=== PATIENT | male | born 1940 | race Caucasian/White ===

== ENCOUNTER 2017-09-16 11:44 | Emergency (ER) | payer MEDICARE, SELFPAY ==
[2017-09-16 12:02] VITALS: BP 136/73; PULSE 92; RESP 18; TEMP 36.7; O2SAT 98
--- NOTE | 2017-09-16 12:03 | ED_ITS ---
HPI - Extremity Injury (Upper) <ESTHER Alanis - Last Filed: 09/16/17 21:28> General Chief Complaint: Extremity Injury, Upper Stated Complaint: LEFT HAND LACERATION FROM A TABLE SAW Time Seen by Provider: 09/16/17 12:13 History of Present Illness HPI narrative: 77-year-old male here for complaint of a laceration to his left thumb. Patient was using a table saw and piece of wood kicked back and hit him in his left thumb. He denies any other injuries or concerns. He reports that incident happened at 11:30 a.m. today. He does not know when his last tetanus was. He reports full range of motion to the left thumb and good sensation. Bleeding is controlled. Related Data Home Medications Medication Instructions Recorded Confirmed [vitamin d] #0 12/08/16 allopurinol 100 mg PO QDAY #0 12/08/16 amlodipine [Norvasc] 5 mg PO QDAY #0 12/08/16 aspirin 81 mg PO QDAY #0 12/08/16 colchicine 0.6 mg PO QDAY #0 12/08/16 simvastatin 10 mg PO HS #0 12/08/16 valsartan-hydrochlorothiazide 1 tab PO QDAY #0 12/08/16 Previous Rx's Medication Instructions Recorded amoxicillin 500 mg PO BID #20 cap 12/08/16 cephalexin 500 mg PO Q12H 7 Days #14 cap 09/16/17 hydrocodone-acetaminophen [Hazard] 1 tab PO Q6H PRN #10 tab 09/16/17 Allergies Allergy/AdvReac Type Severity Reaction Status Date / Time cat dander [CAT DANDER] Allergy Intermediate wheezing Unverified 08/05/17 12:46 Review of Systems <ESTHER Alanis - Last Filed: 09/16/17 21:28> Constitutional Denies chills, Denies fever(s), Denies lethargy and Denies weakness Eyes Denies change in vision, Denies eye discharge, Denies irritation and Denies loss of vision ENT Ears, Nose, Mouth, and Throat: Denies change in voice, Denies neck pain and Denies sore throat Cardiovascular Denies chest pain, Denies irregular heart rhythm, Denies lightheadedness, Denies palpitations, Denies dyspnea, Denies dyspnea on exertion and Denies orthopnea Respiratory Denies cough, Denies dyspnea, Denies dyspnea on exertion and Denies wheezing Gastrointestinal Gastrointestinal: Denies abdominal pain, Denies change in bowel habits, Denies diarrhea, Denies nausea and Denies vomiting Musculoskeletal Denies neck pain Comments: Laceration left thumb Integumentary/Breasts Denies pruritus, Denies erythema, Denies rash and Denies wounds Neurologic Denies loss of vision and Denies weakness Endocrine Denies palpitations Allergic/Immunologic Denies wheezing Exam <ESTHER Alanis - Last Filed: 09/16/17 21:28> Initial Vital Signs Initial Vital Signs: Vital Signs Temperature 98.1 F 09/16/17 12:02 Pulse Rate 92 H 09/16/17 12:02 Respiratory Rate 18 09/16/17 12:02 Blood Pressure 136/73 H 09/16/17 12:02 Pulse Oximetry 98 09/16/17 12:02 Const General: cooperative and well developed Nutritional Appearance: well nourished Orientation: alert, awake, oriented x3 and not confused HENMO Mouth: oral mucosae normal, oropharynx normal and moist mucous membranes Eyes Conjunctivae: conjunctivae normal Sclera: sclerae normal Pupils: PERRL EOM: EOM intact bilaterally Resp Effort & Inspection: normal respiratory effort, able to speak in complete sentences, no respiratory distress and no use of accessory muscles Auscultation: clear to auscultation bilaterally, no rales, no rhonchi and no wheezes Cardio Rate: regular rate Rhythm: regular rhythm Heart Sounds: S1 normal, S2 normal, no click, no gallops and no murmurs Skin General: no rashes or lesions noted, No jaundice and No petechiae Extrem Other: For cm laceration to the dorsal aspect of the left thumb over MCP joint. Distal sensation is intact. Distal cap refill less than 2 sec. Full range of motion. <Darci Sparks MD - Last Filed: 09/17/17 07:32> Initial Vital Signs Initial Vital Signs: Vital Signs Temperature 98.1 F 09/16/17 12:02 Pulse Rate 92 H 09/16/17 12:02 Respiratory Rate 18 09/16/17 12:02 Blood Pressure 136/73 H 09/16/17 12:02 Pulse Oximetry 98 09/16/17 12:02 Procedures <ESTHER Alanis - Last Filed: 09/16/17 21:28> Joint Aspiration/Injection Laceration 1: Site: hand Side (If applicable): left Size (cm): 4 Description: irregular Depth: simple, single layer Local Anesthetic: lidocaine 1% Amount of anesthesia used (mL): 4 Pre-repair: wound explored and irrigated extensively Skin layer closed with: nylon Size (cm): 4-0 Number of sutures: 10 Technique: simple, interrupted Course <ESTHER Alanis - Last Filed: 09/16/17 21:28> Orders Ordered: Discontinued Medications Cefazolin Sodium (Ancef Vial) 1 gm IV NOW ONE Stop: 09/16/17 13:33 Last Admin: 09/16/17 13:45 Dose: Diphtheria/Tetanus/Acell Pertussis (Adacel) 0.5 ml IM .ONCE ONE Stop: 09/16/17 12:09 Last Admin: 09/16/17 12:46 Dose: 0.5 ml Cefazolin Sodium/Dextrose (Ancef) 1 gm in 50 mls @ 200 mls/hr IV NOW ONE Stop: 09/16/17 13:59 Last Infusion: 09/16/17 14:05 Dose: 0 mls/hr Admin: 09/16/17 13:44 Dose: 200 mls/hr Vital Signs - 8 hr 09/16/17 14:38 09/16/17 14:41 Pulse Rate 79 79 Respiratory Rate 16 Blood Pressure 137/75 H Blood Pressure [Right Arm] 137/75 H Pulse Oximetry 100 <Darci Sparks MD - Last Filed: 09/17/17 07:32> Orders Ordered: Discontinued Medications Cefazolin Sodium (Ancef Vial) 1 gm IV NOW ONE Stop: 09/16/17 13:33 Last Admin: 09/16/17 13:45 Dose: Diphtheria/Tetanus/Acell Pertussis (Adacel) 0.5 ml IM .ONCE ONE Stop: 09/16/17 12:09 Last Admin: 09/16/17 12:46 Dose: 0.5 ml Cefazolin Sodium/Dextrose (Ancef) 1 gm in 50 mls @ 200 mls/hr IV NOW ONE Stop: 09/16/17 13:59 Last Infusion: 09/16/17 14:05 Dose: 0 mls/hr Admin: 09/16/17 13:44 Dose: 200 mls/hr Vital Signs - 8 hr 09/16/17 14:38 09/16/17 14:41 Pulse Rate 79 79 Respiratory Rate 16 Blood Pressure 137/75 H Blood Pressure [Right Arm] 137/75 H Pulse Oximetry 100 MDM - Extremity Injury (Upper) <ESTHER Alanis - Last Filed: 09/16/17 21:28> Lab Data Result diagrams: 09/16/17 12:50 09/16/17 12:50 Lab Results 09/16/17 09/16/17 Range/Units 12:50 12:50 WBC 6.8 (4.5-11.0) X10^3/uL RBC 4.46 L (4.5-5.9) X10^6/uL Hgb 14.0 (13.5-17.5) g/dL Hct 39.7 L (41-53) % MCV 89.0 (80-100) fL MCH 31.3 (26-34) PG MCHC 35.2 (30-36) % RDW 14.5 (11.6-14.8) % Plt Count 168 (150-400) X10^3/uL Neut % (Auto) 65.7 (50-75) % Lymph % (Auto) 20.4 L (25-40) % Freestone % (Auto) 8.1 (3-14) % Eos % (Auto) 4.8 H (2-4) % Baso % (Auto) 1.0 (0-2) % Neut # (Auto) 4500 (7427-4456) /uL Sodium 142 (137-145) mmol/L Potassium 2.9 L (3.4-5.1) mmol/L Chloride 100.0 (98-107) mmol/L Carbon Dioxide 31.0 (22-32) mmol/L BUN 31.0 H (9-20) mg/dL Creatinine 1.40 H (0.66-1.25) mg/dL Estimated GFR 49.4 L (>60) mL/min BUN/Creatinine Ratio 22.1 H (6-22) Glucose 105 (80-110) mg/dL Calcium 9.6 (8.4-10.2) mg/dL Total Bilirubin 0.6 (0.2-1.3) mg/dL AST 39 (17-59) IU/L ALT 54 (21-72) IU/L Alkaline Phosphatase 70 (38-126) U/L Total Protein 6.8 (6.3-8.2) g/dL Albumin 4.0 (3.5-5.0) g/dL Globulin 2.8 (1.7-4.1) g/dL Albumin/Globulin Ratio 1.4 (1.0-2.8) Imaging Data left thumb: Radiologist's impression: PROCEDURE: XR FINGER LT MIN 2V INDICATIONS: Table saw injury to left thumb TECHNIQUE: AP hand, 2 views of the thumb acquired. COMPARISON: None. FINDINGS: Bones: There is a comminuted fracture at the base of the first proximal phalanx with volar displacement of the distal fracture fragment and minimal angulation. 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 Irregular appearance at the base of the first metacarpal is most likely secondary to degenerative change. No suspicious bony lesions. Soft tissues: No suspicious soft tissue calcifications. IMPRESSION: 1. Comminuted first proximal phalangeal fracture. 2. 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 Irregular appearance at the base of the first metacarpal is most likely secondary to degenerative change but subtle fracture cannot be excluded. Dictated by: Charlene Davidson M.D. on 09/16/2017 at 12:45 Approved by: Charlene Davidson M.D. on 09/16/2017 at 12:54 [facility] Narrative Medical decision making narrative: X-ray to the left thumb was obtained and shows a proximal fracture to the 1st phalanx. Wound was irrigated with 500 mL of normal saline extensively no foreign bodies was seen. Thumb has full range of motion and sensation intact with distal cap refill less than 2 sec. Wound was closed with 10 sutures with no complications. Wound dressed with bacitracin and a dressing. Thumb is splinted for support and comfort. Discussed case with Dr. Murphy orthopedics will follow up with patient on a Thursday for further treatment and possible procedure. Patient was given 1 g of Ancef in the emergency room. He is placed on oral Keflex. [id number] Tylenol as needed for discomfort. Small amount of Hazard is prescribed for breakthrough pain. Tetanus updated the emergency room today.For any worsening symptoms return to the emergency room. Keep wound area clean and dry until follow-up with Orthopedics <Darci Sparks MD - Last Filed: 09/17/17 07:32> Lab Data Lab Results 09/16/17 09/16/17 Range/Units 12:50 12:50 WBC 6.8 (4.5-11.0) X10^3/uL RBC 4.46 L (4.5-5.9) X10^6/uL Hgb 14.0 (13.5-17.5) g/dL Hct 39.7 L (41-53) % MCV 89.0 (80-100) fL MCH 31.3 (26-34) PG MCHC 35.2 (30-36) % RDW 14.5 (11.6-14.8) % Plt Count 168 (150-400) X10^3/uL Neut % (Auto) 65.7 (50-75) % Lymph % (Auto) 20.4 L (25-40) % Freestone % (Auto) 8.1 (3-14) % Eos % (Auto) 4.8 H (2-4) % Baso % (Auto) 1.0 (0-2) % Neut # (Auto) 4500 (0742-7019) /uL Sodium 142 (137-145) mmol/L Potassium 2.9 L (3.4-5.1) mmol/L Chloride 100.0 (98-107) mmol/L Carbon Dioxide 31.0 (22-32) mmol/L BUN 31.0 H (9-20) mg/dL Creatinine 1.40 H (0.66-1.25) mg/dL Estimated GFR 49.4 L (>60) mL/min BUN/Creatinine Ratio 22.1 H (6-22) Glucose 105 (80-110) mg/dL Calcium 9.6 (8.4-10.2) mg/dL Total Bilirubin 0.6 (0.2-1.3) mg/dL AST 39 (17-59) IU/L ALT 54 (21-72) IU/L Alkaline Phosphatase 70 (38-126) U/L Total Protein 6.8 (6.3-8.2) g/dL Albumin 4.0 (3.5-5.0) g/dL Globulin 2.8 (1.7-4.1) g/dL Albumin/Globulin Ratio 1.4 (1.0-2.8) Discharge Plan Departure Patient Disposition: Home, Self-Care Clinical Impression: Laceration of left thumb, Open fracture of left thumb Discharge Date/Time: 09/16/17 14:42 Interventions: ED Discharge Assessment Last Done: 09/16/17 14:41 Instructions: DI for Laceration Repair, DI for Finger Fracture Activity Restrictions/Additional Instructions: Laceration to left thumb was closed with sutures. X-ray of the thumb indicates that there is a fracture of the thumb. You were given antibiotics in the emergency room to prevent infection due to open fracture. Oral antibiotics have been prescribed use as directed. Use [id number] Tylenol as needed for any discomfort. Small amount of Hazard is prescribed for breakthrough pain use as directed. Tetanus was updated in the emergency room today Call Orthopedics office at number provided to schedule follow-up appointment on Thursday. Keep wound area clean and dry until follow-up with Orthopedics. For any worsening symptoms return to the emergency room. Prescriptions: New hydrocodone-acetaminophen [Hazard] 5-325 mg tablet 1 tab PO Q6H PRN (Reason: pain) Qty: 10 RF: 0 cephalexin 500 mg capsule 500 mg PO Q12H 7 Days Qty: 14 RF: 0 No Action simvastatin 10 MG tablet 10 mg PO HS Qty: 0 RF: 0 valsartan-hydrochlorothiazide 320 MG/12.5 MG tablet 1 tab PO QDAY Qty: 0 RF: 0 amlodipine [Norvasc] 5 MG tablet 5 mg PO QDAY Qty: 0 RF: 0 allopurinol 100 MG tablet 100 mg PO QDAY Qty: 0 RF: 0 colchicine 0.6 MG capsule 0.6 mg PO QDAY Qty: 0 RF: 0 aspirin 81 MG tablet,delayed release (DR/EC) 81 mg PO QDAY Qty: 0 RF: 0 [vitamin d] Qty: 0 RF: 0 amoxicillin 500 MG capsule 500 mg PO BID Qty: 20 RF: 0 Referrals: Luz Marina Murphy MD [Physician] - <Darci Sparks MD - Last Filed: 09/17/17 07:32> Sign Out Provider Sign Out Attestation: I attest to the documentation recorded. I was the attending of record and available in the ED throught course. I agree with assessment and plan.
[2017-09-16 12:05] VITALS: PULSE 92
--- NOTE | 2017-09-16 12:07 | DI.RAD.S_ITS ---
PROCEDURE: XR FINGER LT MIN 2V INDICATIONS: Table saw injury to left thumb TECHNIQUE: AP hand, 2 views of the thumb acquired. COMPARISON: None. FINDINGS: Bones: There is a comminuted fracture at the base of the first proximal phalanx with volar displacement of the distal fracture fragment and minimal angulation. 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 Irregular appearance at the base of the first metacarpal is most likely secondary to degenerative change. No suspicious bony lesions. Soft tissues: No suspicious soft tissue calcifications. IMPRESSION: 1. Comminuted first proximal phalangeal fracture. 2. 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 Irregular appearance at the base of the first metacarpal is most likely secondary to degenerative change but subtle fracture cannot be excluded. Dictated by: Charlene Davidson M.D. on 09/16/2017 at 12:45 Approved by: Charlene Davidson M.D. on 09/16/2017 at 12:54
[2017-09-16] MEDS: TET,DIPH,PERTUSS(ACELL),VAC/PF 0.5 ML SYRINGE IM (12:46)
[2017-09-16 13:06] LABS: Add Manual Diff / Slide Review NO; Eosinophils Percent Auto 4.8 % (2-4); Hematocrit 39.7 % (41-53); Lymphocytes Percent Auto 20.4 % (25-40); Mean Corpuscular HGB Conc 35.2 % (30-36); Mean Corpuscular Hemoglobin 31.3 PG (26-34); Monocytes Percent Auto 8.1 % (3-14); Neutrophils Absolute Auto 4500 /uL (3000-5900); Neutrophils Percent Auto 65.7 % (50-75); Platelet Count 168 X10^3/uL (150-400); Red Blood Cell Count 4.46 X10^6/uL (4.5-5.9); Red Cell Distribution Width 14.5 % (11.6-14.8); White Blood Cell Count 6.8 X10^3/uL (4.5-11.0)
[2017-09-16 13:16] LABS: Alanine Aminotransferase 54 IU/L (21-72); Albumin Globulin Ratio 1.4 (1.0-2.8); Alkaline Phosphatase 70 U/L (38-126); Aspartate Aminotransferase 39 IU/L (17-59); BUN Creatinine Ratio 22.1 (6-22); Bilirubin Total 0.6 mg/dL (0.2-1.3); Calcium 9.6 mg/dL (8.4-10.2); Estimated Glomerular Filt Rate 49.4 mL/min (>60); Globulin 2.8 g/dL (1.7-4.1); Glucose 105 mg/dL (80-110); HEMOLYSIS < 15 (0-50); Potassium 2.9 mmol/L (3.4-5.1); Sodium 142 mmol/L (137-145); Total Protein 6.8 g/dL (6.3-8.2)
[2017-09-16] MEDS: CEFAZOLIN 1 GM/50 ML FROZ.PIGGY IV (13:44)
[2017-09-16 14:38] VITALS: BP 137/75; PULSE 79; RESP 16; O2SAT 100
[2017-09-16 14:41] VITALS: BP 137/75; PULSE 79
== END 2017-09-16 14:42 | disposition home or self-care (01) ==
PROVIDERS: Emergency Provider Nurse Practitioner Family
DX: S61.012A Laceration without foreign body of left thumb without damage to nail, initial encounter (principal); S62.502B Fracture of unspecified phalanx of left thumb, initial encounter for open fracture; W31.9XXA Contact with unspecified machinery, initial encounter
CPT/HCPCS: 12002; 36591; 73140; 80053; 85025; 90471; 96365; 96375; 99283; 99284; 90715

== ENCOUNTER 2019-09-19 17:53 | Emergency (ER) | payer MEDICARE, OTHER, SELFPAY ==
[2019-09-19 18:04] VITALS: BP 166/86; PULSE 76; RESP 16; TEMP 36.6; O2SAT 97; BMI 25.8
--- NOTE | 2019-09-19 18:08 | ED_ITS ---
HPI - Wound/Laceration <ESTHER Vasques - Last Filed: 09/19/19 22:32> General Chief Complaint: Wound/Laceration Stated Complaint: LACERATION OF RIGHT HAND SAW Time Seen by Provider: 09/19/19 17:54 History of Present Illness HPI narrative: 79yo male presents emergency department for a laceration to top of right thumb. Patient states he was using a table saw when the wood kicked back and cut his thumb. He states is able to move his thumb without any diffi culty. Patient states his last Tdap was 2 years ago. He denies any other symptoms or injuries. Denies taking any blood thinners. Denies headache, neck pain, chest pain, fevers, chills, shortness of breath, nausea, vomiting, diarrhea, or any other concerns. Related Data Home Medications Medication Instructions Recorded Confirmed [vitamin d] #0 12/08/16 06/01/19 allopurinol 100 mg PO QDAY #0 12/08/16 06/01/19 amlodipine [Norvasc] 5 mg PO QDAY #0 12/08/16 06/01/19 aspirin 81 mg PO QDAY #0 12/08/16 06/01/19 colchicine 0.6 mg PO QDAY #0 12/08/16 06/01/19 simvastatin 10 mg PO HS #0 12/08/16 06/01/19 valsartan-hydrochlorothiazide 1 tab PO QDAY #0 12/08/16 06/01/19 Previous Rx's Medication Instructions Recorded hydrocodone-acetaminophen [Crowder] 1 tab PO Q6H PRN #10 tab 09/16/17 doxycycline hyclate 100 mg PO BID 7 Days #14 cap 09/19/19 Allergies Allergy/AdvReac Type Severity Reaction Status Date / Time cat dander [CAT DANDER] Allergy Intermediate wheezing Verified 06/01/19 14:21 Review of Systems <ESTHER Vasques - Last Filed: 09/19/19 22:32> Review of Systems Narrative: REVIEW OF SYSTEMS: GENERAL: Denies fever or chills. HENT: Denies head trauma. CARDIOVASCULAR: Denies syncope. MUSCULOSKELETAL: Denies weakness, or deformities. INTEGUMENTARY: Complains of laceration of R thumb, see HPI. NEURO: Denies numbness or tingling. Patient History <ESTHER Vasques - Last Filed: 09/19/19 22:32> Medical History Hypertension (Acute) Renal insufficiency (Acute) Social History Smoking Status: Former smoker Smoking Status: Former smoker alcohol intake frequency: 0-2 drinks per day Substance Use Type: marijuana Exam <ESTHER Vasques - Last Filed: 09/19/19 22:32> Initial Vital Signs Initial Vital Signs: Vital Signs Temperature 97.9 F 09/19/19 18:04 Pulse Rate 76 09/19/19 18:04 Respiratory Rate 16 09/19/19 18:04 Blood Pressure 166/86 H 09/19/19 18:04 Pulse Oximetry 97 09/19/19 18:04 PHYSICAL EXAMINATION: GENERAL: Well groomed, alert, and cooperative. Answers questions promptly and appropriately. Vital signs noted. HENT: Normocephalic, atraumatic. RESPIRATORY: Normal respiratory rate, trachea midline, airway patent. No stridor, nasal flaring or accessory muscle use. MUSCULOSKELETAL: Patient has full range of motion of thumb against resistance including flexion and extension without any weakness. Patient has strength with movement of thumb side side. Patient able to touch thumb to all fingers as well. Equal home economist strength bilaterally. Normal gait and coordination. Equal tone and mass bilaterally. EXTREMITIES: CMS intact. Moves all extremities. SKIN: Warm, dry, soft, appropriate color for ethnicity. A 14 cm triangle flap shaped laceration noted to top of right thumb below MCP joint, tendon visualized and remains intact, bleeding controlled with pressure. No foreign object visualized. NEURO: Alert and Oriented X 3. Good coordination. PSYCH: Appropriate affect and mood. <Enriqueta Zhang MD - Last Filed: 09/20/19 06:16> Initial Vital Signs Initial Vital Signs: Vital Signs Temperature 97.9 F 09/19/19 18:04 Pulse Rate 76 09/19/19 18:04 Respiratory Rate 16 09/19/19 18:04 Blood Pressure 166/86 H 09/19/19 18:04 Pulse Oximetry 97 09/19/19 18:04 Procedures <ESTHER Vasques - Last Filed: 09/19/19 22:32> Laceration Repair Laceration 1: Site: hand Side (If applicable): right Size (cm): 14 Description: linear and flap Depth: simple, single layer Local Anesthetic: bupivacaine 0.5% Amount of anesthesia used (mL): 8 Pre-repair: wound explored and irrigated extensively Skin layer closed with: nylon Size (cm): 4-0 Number of sutures: 18 Technique: simple, interrupted Course <ESTHER Vasques - Last Filed: 09/19/19 22:32> Orders Ordered: Discontinued Medications Hydrocodone Bitart/Acetaminophen (Vicodin 5/325 Prepack) 1 bottle MISC SEEINSTR ONE Stop: 09/19/19 20:12 Last Admin: 09/19/19 20:20 Dose: 1 bottle Documented by: GRUPO Bacitracin (Bacitracin) 1 applic TOP NOW ONE Stop: 09/19/19 18:33 Doxycycline Hyclate (Vibramycin) 100 mg PO NOW ONE Stop: 09/19/19 20:12 Last Admin: 09/19/19 20:21 Dose: 100 mg Documented by: CVANCE Vital Signs Vital signs: Vital Signs - 8 hr 09/19/19 18:04 Temperature 97.9 F Pulse Rate 76 Respiratory Rate 16 Blood Pressure 166/86 H Pulse Oximetry 97 <Enriqueta Zhang MD - Last Filed: 09/20/19 06:16> Orders Ordered: Discontinued Medications Hydrocodone Bitart/Acetaminophen (Vicodin 5/325 Prepack) 1 bottle MIS SEEINSTR ONE Stop: 09/19/19 20:12 Last Admin: 09/19/19 20:20 Dose: 1 bottle Documented by: GRUPO Bacitracin (Bacitracin) 1 applic TOP NOW ONE Stop: 09/19/19 18:33 Doxycycline Hyclate (Vibramycin) 100 mg PO NOW ONE Stop: 09/19/19 20:12 Last Admin: 09/19/19 20:21 Dose: 100 mg Documented by: CVANCE Vital Signs Vital signs: Vital Signs - 8 hr 09/19/19 18:04 Temperature 97.9 F Pulse Rate 76 Respiratory Rate 16 Blood Pressure 166/86 H Pulse Oximetry 97 MDM - Wound/Laceration <ESTHER Vasques - Last Filed: 09/19/19 22:32> Medical Records Attestation: I reviewed the patient's medical records. Lab Data Attestation: I reviewed the patient's lab results. Imaging Data Extremity x-ray #1: Radiologist's Impression: [address] [address] XRay Report Signed Patient: Sudhir Bryson WMR#: [id number] : 2Acct:[id number] Age/Sex: 79 / MDate of Service: 09/19/19 Loc: ED Accession Number: [id number] Procedure: XR hand RT 2V Ordering Provider: Chante Mohamud PROCEDURE: XR HAND RT 2V INDICATIONS: Deep lac, rule out foreign body TECHNIQUE: 2 views of the hand(s) acquired. COMPARISON: None. FINDINGS: Bones: No fractures or dislocations. Carpal bones are normally aligned. No suspicious bony lesions. Osteophytic changes along radial aspect of right wrist are seen. Soft tissues: Laceration over dorsal and radial aspect of first MCP joint is seen. No suspicious soft tissue calcifications. No radiopaque foreign body is seen. IMPRESSION: Laceration over first MCP joint. No acute right hand fracture or dislocation. No radiopaque foreign body. Dictated by: Trenton Solis M.D. on 09/19/2019 at 18:25 Approved by: Trenton Solis M.D. on 09/19/2019 at 18:26 [facility] Narrative Medical decision making narrative: 79-year-old male presents emergency department for a laceration repair X-ray negative for any foreign bodies or fractures. Less concern for tendon involvement due to visible intact ended full range of motion against resistance in all directions of thumb. Patient was treated with antibiotics due to significant exposure and exposure of tendon. He was encouraged to follow up with his primary care provider in 1-2 weeks for further evaluation. Patient was counseled extensively to return emergency department for any new or worsening symptoms. Discharge Plan Departure Patient Disposition: Home Clinical Impression: Laceration Discharge Date/Time: 09/19/19 20:36 Instructions: DI for Laceration Repair Activity Restrictions/Additional Instructions: Thank you for entrusting me with your care today. As discussed, I have placed 18 sutures in your laceration, these will need to be removed in approximately 14 days. I have given you a prescription for an antibiotic, please take this as directed. Leave the bandage in place for the next 24 hours. After that you may remove the bandage and wash the wound gently with soap and water. Apply Neosporin 1 to 2 times a day. Please wear the splint for the next 3 days to help with the wound healing. I have also given you pain medication. You have been prescribed a narcotic medication, this medication can make you drowsy. Do not drive while using this medication or perform activities that require mental alertness. These medications can also make you constipated, please use [id number] docusate sodium as needed for constipation. Return emergency department for any new or worsening symptoms such as severe pain, pus, redness, fevers, or any other concerns. Prescriptions: New doxycycline hyclate 100 mg capsule 100 mg PO BID 7 Days Qty: 14 RF: 0 No Action simvastatin 10 MG tablet 10 mg PO HS Qty: 0 RF: 0 valsartan-hydrochlorothiazide 320 MG/12.5 MG tablet 1 tab PO QDAY Qty: 0 RF: 0 amlodipine [Norvasc] 5 MG tablet 5 mg PO QDAY Qty: 0 RF: 0 allopurinol 100 MG tablet 100 mg PO QDAY Qty: 0 RF: 0 colchicine 0.6 MG capsule 0.6 mg PO QDAY Qty: 0 RF: 0 aspirin 81 MG tablet,delayed release (DR/EC) 81 mg PO QDAY Qty: 0 RF: 0 [vitamin d] Qty: 0 RF: 0 hydrocodone-acetaminophen [Crowder] 5-325 mg tablet 1 tab PO Q6H PRN (Reason: pain) Qty: 10 RF: 0 <Enriqueta Zhang MD - Last Filed: 09/20/19 06:16> [facility] I was immediately available in the department for consultation throughout this patient's visit. I agree with documentation as above. Enriqueta Zhang MD
[2019-09-19] MEDS: HYDROCODONE/ACET 5/325 PREPACK 1 BOTTLE MISC (20:20)
[2019-09-19] MEDS: DOXYCYCLINE HYCLATE 100 MG TABLET PO (20:21)
== END 2019-09-19 20:36 | disposition home or self-care (01) ==
PROVIDERS: Emergency Provider Nurse Practitioner
DX: S61.011A Laceration without foreign body of right thumb without damage to nail, initial encounter (principal); W45.8XXA Other foreign body or object entering through skin, initial encounter; W22.8XXA Striking against or struck by other objects, initial encounter
CPT/HCPCS: 12005; 73120; 99283

== ENCOUNTER → 2024-06-10 10:33 | Outpatient (CLI) | payer MEDICARE, OTHER, SELFPAY ==
[2024-06-10 12:06] LABS: Hematocrit 42.3 % (41-53); Hemoglobin 14.6 g/dL (13.5-17.5); Mean Corpuscular HGB Conc 34.6 % (30-36); Mean Corpuscular Hemoglobin 31.6 PG (26-34); Mean Corpuscular Volume 91.5 fL (80-100); Platelet Count 197 X10^3/uL (150-400); Red Blood Cell Count 4.62 X10^6/uL (4.5-5.9); Red Cell Distribution Width 14.8 % (11.6-14.8); White Blood Cell Count 8.9 X10^3/uL (4.5-11.0)
[2024-06-10 12:40] LABS: HEMOLYSIS < 15 (0-50); Iron 70 ug/dL (49-181)
[2024-06-10 12:41] LABS: Albumin 4.1 g/dL (3.5-5.0); BUN Creatinine Ratio 16.3 (6-22); Blood Urea Nitrogen 31 mg/dL (9-20); Calcium 10.5 mg/dL (8.4-10.2); Carbon Dioxide 27 mmol/L (22-32); Chloride 107 mmol/L (98-107); Estimated Glomerular Filt Rate 35 mL/min (>60); Glucose 115 mg/dL (80-110); HEMOLYSIS < 15 (0-50); Magnesium 2.3 mg/dL (1.6-2.3); Phosphorous 3.1 mg/dL (2.3-3.7); Potassium 3.5 mmol/L (3.4-5.1); Sodium 142 mmol/L (137-145)
[2024-06-10 12:51] LABS: Percent Iron Saturation 29 % (20-50); Total Iron Binding Capacity 240 ug/dL (261-462); Transferrin 224 mg/dL (206-381)
[2024-06-10 19:50] LABS: Creatinine Urine Random 111.45 mg/dL
[2024-06-10 19:55] LABS: Protein (Total) Urine Random 295 mg/dL (0-12); Protein Creatinine Ratio Urine 2.64 GRAM/24H
[2024-06-10 20:06] LABS: Vitamin D 25 Hydroxy (D3) < 12.8 ng/mL (30.0-100.0)
[2024-06-11 11:36] LABS: Parathyroid Hormone Int 214 pg/mL (15-65)
== END ==
PROVIDERS: PCP Internal Medicine; Referring Provider Internal Medicine Nephrology; Visit Provider Internal Medicine Nephrology
DX: N18.31 Chronic kidney disease, stage 3a (principal); D63.1 Anemia in chronic kidney disease; N25.81 Secondary hyperparathyroidism of renal origin
CPT/HCPCS: 36415; 80069; 82306; 82570; 83540; 83550; 83735; 83970; 84156; 85027

== ENCOUNTER → 2025-03-29 10:28 | Outpatient (CLI) | payer MEDICARE, OTHER, SELFPAY ==
[2025-03-29 11:15] LABS: Hematocrit 43.3 % (41-53); Hemoglobin 14.8 g/dL (13.5-17.5); Mean Corpuscular HGB Conc 34.3 % (30-36); Mean Corpuscular Hemoglobin 30.7 PG (26-34); Mean Corpuscular Volume 89.4 fL (80-100); Platelet Count 194 X10^3/uL (150-400)
[2025-03-29 11:36] LABS: HEMOLYSIS < 15 (0-50); Iron 67 ug/dL (49-181)
[2025-03-29 11:40] LABS: Albumin 4.3 g/dL (3.5-5.0); Blood Urea Nitrogen 31 mg/dL (9-20); Calcium 10.4 mg/dL (8.4-10.2); Carbon Dioxide 26 mmol/L (22-32); Chloride 106 mmol/L (98-107); Estimated Glomerular Filt Rate 36 mL/min (>60); Glucose 102 mg/dL (70-99); HEMOLYSIS < 15 (0-50); Magnesium 2.2 mg/dL (1.6-2.3); Phosphorous 3.6 mg/dL (2.3-3.7); Potassium 3.4 mmol/L (3.4-5.1); Sodium 143 mmol/L (137-145)
[2025-03-29 11:45] LABS: Protein (Total) Urine Random 228 mg/dL (0-12); Protein Creatinine Ratio Urine 1.84 GRAM/24H
[2025-03-29 11:46] LABS: Percent Iron Saturation 23 % (20-50); Total Iron Binding Capacity 291 ug/dL (261-462); Transferrin 249 mg/dL (206-381)
[2025-03-29 11:53] LABS: Vitamin D 25 Hydroxy (D3) < 12.8 ng/mL (30.0-100.0)
== END ==
PROVIDERS: PCP Internal Medicine; Referring Provider Internal Medicine Nephrology; Visit Provider Internal Medicine Nephrology
DX: N18.31 Chronic kidney disease, stage 3a (principal); D63.1 Anemia in chronic kidney disease; N25.81 Secondary hyperparathyroidism of renal origin
CPT/HCPCS: 36415; 80069; 82306; 82570; 83540; 83550; 83735; 83970; 84156; 85027